=== PATIENT | female | born 1990 | race Caucasian/White ===

== ENCOUNTER 2025-11-01 11:00 | Emergency (ER) | payer MEDICAID, SELFPAY ==
[2025-11-01 11:18] VITALS: BP 122/81; PULSE 100; RESP 16; TEMP 37.4; O2SAT 99; BMI 31.5
--- NOTE | 2025-11-01 11:23 | XR_ITS ---
Examination: Transvaginal ultrasound of the pelvis, complete Technique: Transvaginal sonographic images pelvis performed using huerta scale imaging Exam date and time: November 01, 2025, 1229 hours INDICATIONS: History IUD placement, vaginal bleeding 3 days FINDINGS: Intrauterine device low in position Retroverted uterus 7.4 cm sagittal dimension Endometrial stripe 1.0 cm Right ovary 6.0 cm arterial flow 12 mm follicular cyst Left ovary 2.7 cm arterial flow IMPRESSION: Intrauterine device low in position lower uterine segment and cervix.
[2025-11-01 12:15] LABS: Collection Type, Urine Voided; RBC,Urine 0 /hpf (0-3)
--- NOTE | 2025-11-01 12:18 | PC.NURSE ---
PT REFUSED LABS PER STUDIO OWNER.
[2025-11-01 12:32] LABS: Bilirubin,Urine Negative (Negative); Blood,Urine 3+ (Negative); Clarity,Urine Clear (Clear/Hazy); Color,Urine Lt-Yellow (Lt Yel-Yel); Glucose, Urine Negative (Negative); Ketones,Urine Negative (Negative); Leukocyte Esterase,Urine Positive (Negative); Nitrite,Urine Negative (Negative); PH,Urine 6.0 (5.0-7.0); Protein,Urine Trace (Neg - Trace); Specific Gravity,Urine 1.027 (1.001-1.035); Squamous Epithelial Cell,Urine 1 /hpf (0-5); Urobilinogen,Urine Negative mg/dL (0.0-1.0); WBC,Urine 10 /hpf (0-5)
--- NOTE | 2025-11-01 16:15 | EDNOTE_ITS ---
ED OB Contraction Preg RMI/HPI General Chief complaint: Vaginal Bleeding Stated complaint: VAGINAL BLEEDING, HAS IUD, BURNING ON URINATION Time Seen by Provider: 11/01/25 11:06 Arrival date/time: 11/01/25 11:00 This is a case of 35-year-old female with no medical history came in in the emergency room due to vaginal bleeding with blood clots for 2 days with painful urination denies vaginal discharge denies abdominal or pelvic pain patient have IUD and wanted to check the location of the IUD 1 para 0 persistence of the symptoms this patient decided to sought consult in the emergency room Limitations: no limitations Related Data Previous Rx's ?Medication ?Instructions ?Recorded cephalexin 500 mg capsule 500 mg PO Q8H #30 caps 11/01 Allergies Allergy/AdvReac Type Severity Reaction Status Date / Time No Known Allergies Allergy Verified 11/01/25 11:03 Review of Systems Review of Systems Systems Reviewed: All systems reviewed, normal except as documented Past Medical History Social History SMOKING STATUS: Current every day smoker ED Exam General Limitations: Present no limitations General appearance: Present alert, in no apparent distress and other (Patient is awake alert oriented not in distress nontoxic looking well-hydrated well- nourished) Head Head exam: Present atraumatic Eye Eye exam: Present normal appearance, PERRL and EOMI ENT ENT exam: Present normal exam, normal oropharynx and mucous membranes moist Neck Neck exam: Present normal inspection, full ROM and trachea midline Chest Chest inspection: Present normal inspection and symmetric chest wall rise Respiratory Respiratory exam: Present normal lung sounds bilaterally Cardiovascular Cardiovascular exam: Present regular rate, normal rhythm and normal heart sounds Abdominal Exam Abdominal exam: Present soft and normal bowel sounds; Absent distention, tenderness, guarding, rigidity, hyperactive bowel sounds, hypoactive bowel sounds, organomegaly, psoas sign, obturator sign, Bradford's sign, Rovsing's sign or tenderness at McBurney's Point External exam: Present other (Refused) Extremities Exam Extremities exam: Present normal inspection and full ROM Back Exam Back exam: Present normal inspection and full ROM Neurological Exam Neurological exam: Present alert, oriented X3, CN II-XII intact, normal gait and reflexes normal; Absent motor sensory deficit Psychiatric Psychiatric exam: Present normal affect and normal mood Skin Skin exam: Present warm, dry, intact, normal color and other (Excellent skin turgor) Course Quality Measures none Orders Category Date Time Status US transvaginal Stat Exams 11/01/25 11:23 Completed Urinalysis Stat Lab 11/01/25 12:00 Completed Vital Signs Vital signs: Vital Signs Temperature 99.3 F 11/01/25 11:18 Pulse Rate 100 11/01/25 11:18 Respiratory Rate 16 11/01/25 11:18 Blood Pressure 122/81 11/01/25 11:18 Pulse Oximetry (%) 99 11/01/25 11:18 Oxygen Delivery Method Room Air 11/01/25 11:18 Oxygen saturation is 99% in room Vaginal Bleeding MDM Narrative MDM Narrative: This is a case of 35-year-old female with no medical history came in in the emergency room due to vaginal bleeding with blood clots for 2 days with painful urination denies vaginal discharge denies abdominal or pelvic pain patient have IUD and wanted to check the location of the IUD 1 para 0 persistence of the symptoms this patient decided to sought consult in the emergency room physical examination patient is awake alert oriented not in distress nontoxic looking well-hydrated well-nourished vital signs stable BP stable not tachycardic not tachypneic afebrile nonhypoxic BP stable 122/81 abdominal exam is benign nonsurgical no guarding no rebound no rigidity negative psoas negative straight or negative Rovsing's no McBurney's no Bradford sign negative CVA tenderness patient refused blood test and pelvic exam patient ultrasound showed a lower position of the IUD but still in location urinalysis shows WBC in the urine suggestive of urinary tract infection at this point patient will be discharged as AMA due to urinalysis report patient will be discharged with cephalexin to be taken for 10 days for UTI she was also advised to see an OB precision assembler bench for abnormal vaginal bleeding and to check the location of the IUD patient refused blood test spite of explanation and need to check for any severe anemia due to heavy vaginal bleeding. patient refused further evaluation and treatment patient decided to leave AGAINST MEDICAL ADVICE I have assessed the patient ability to make a informed decision and feeling that the patient has the capacity to comprehend information regarding the current medical condition and appreciates the impact of the disease and condition and the consequences of her his action for the refusal of the treatment including the going treatment the patient possess the ability to evaluate all treatment option compared the risks and benefits of his or her choice in a consistent manner over time and is able to make rational choices I have explained to the patient further testing treatment and evaluation I would like to accomplish in a timely manner I have outlined the possible risk of foregoing any of all this intervention and the patient understands and acknowledge her his decision to leave may result and undesirable consequences suggested permanent disability and or loss of current lifestyle even though leaving AMA is not ideal I have instructed the patient to follow any discharge instruction given take any medication prescribed and resume care as soon as possible with another provider the conversation was witnessed by another member of the emergency department and we clearly communicate that the patient is welcome to return at any time to continue care at our facility Patient data External records reviewed:: [facility] previous records Clinical information provided by:: patient Social determinants that could affect healthcare access:: none Patient has the following chronic illnesses:: None How is presenting disease/condition affected by chronic disease/condition?: no chronic disease Evaluation data The following diagnostics were reviewed and interpreted by me:: radiology exam(s) Lab and/or radiology exams considered but not ordered:: Reviewed Interpretation Summary: Reviewed Medications / Prescriptions Medications or Prescriptions considered but not ordered:: Given Medication administrations:: Given Consultations Consultation(s) initiated? (list below): No Diagnosis Vaginal Bleeding Differential Diagnosis: dysfunctional uterine bleeding Most likely diagnosis given after review of the tests above:: Abnormal vaginal bleeding Admission Indicated Admission indicated?: not indicated Explain why admission is indicated or not indicated:: Not indicated Admission Request Was there a request for admission?: No Disposition Plan Disposition Plan: other (specify) (AMA) Discharge Attestation Discharge Attestation: patient refused further evaluation and treatment patient decided to leave AGAINST MEDICAL ADVICE I have assessed the patient ability to make a informed decision and feeling that the patient has the capacity to comprehend information regarding the current medical condition and appreciates the impact of the disease and condition and the consequences of her his action for the refusal of the treatment including the going treatment the patient possess the ability to evaluate all treatment option compared the risks and benefits of his or her choice in a consistent manner over time and is able to make rational choices I have explained to the patient further testing treatment and evaluation I would like to accomplish in a timely manner I have outlined the possible risk of f oregoing any of all this intervention and the patient understands and acknowledge her his decision to leave may result and undesirable consequences suggested permanent disability and or loss of current lifestyle even though leaving AMA is not ideal I have instructed the patient to follow any discharge instruction given take any medication prescribed and resume care as soon as possible with another provider the conversation was witnessed by another member of the emergency department and we clearly communicate that the patient is welcome to return at any time to continue care at our facility Discharge Plan Plan Patient Disposition: Left Against Medical Advice Prescriptions/Referrals Prescriptions/Med Rec: New cephalexin 500 mg capsule 500 mg PO Q8H Qty: 30 0RF Problem List Clinical Impression: Abnormal vaginal bleeding, Urinary tract infection, Left against medical advice Patient/Caregiver Discharge Instructions Education Materials: Urinary Tract Infections in Women, ED Dysfunctional Uterine Bleeding Additional Instructions: It is very important to follow-up with your primary care physician to be referred to OB precision assembler bench for further evaluation and treatment of abnormal vaginal bleeding for any worsening symptoms or any emergent concern call 911 or go to the nearest emergency room take your medication as directed finish the course of antibiotic Print Language: Grenadian KAVYA/ASHWIN Supervising Physician KAVYA/ASHWIN Supervising Physician: dr merida
== END 2025-11-01 14:05 | disposition left against medical advice (07) ==
LOC: SERX 13:49
PROVIDERS: Nurse Practitioner Family; Emergency Provider Family Medicine
DX: N39.0 Urinary tract infection, site not specified (principal); N93.9 Abnormal uterine and vaginal bleeding, unspecified; Z53.29 Procedure and treatment not carried out because of patient's decision for other reasons
CPT/HCPCS: 76830; 80053; 81001; 84702; 85025; 86900; 86901; 99283